=== PATIENT | female | born 1995 | race African-American/Black ===

== ENCOUNTER 2021-07-25 13:46 | Emergency (ER) | payer SELFPAY ==
[2021-07-25] MEDS ORDERED: IBUPROFEN 800 MG TAB PO ONE (16:53)
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
[2021-07-25 17:05] VITALS: BP 135/80
== END 2021-07-25 17:20 | disposition home or self-care (01) ==
LOC: ED 13:46
DX: S09.11XA Strain of muscle and tendon of head, initial encounter (principal); S39.012A Strain of muscle, fascia and tendon of lower back, initial encounter; V87.7XXA Person injured in collision between other specified motor vehicles (traffic), initial encounter; Y93.89 Activity, other specified; Y92.488 Other paved roadways as the place of occurrence of the external cause; Y99.8 Other external cause status; Z79.899 Other long term (current) drug therapy
CPT/HCPCS: 99282